=== PATIENT | male | born 1985 | race Caucasian/White ===

== ENCOUNTER 2017-06-09 08:38 | Outpatient (RCR) | payer BC, OTHER ==
[~2017-06-09 08:38] MED LIST: AGM875T PO; CLIN-62 PO; CPR500T PO; FLUT16SP22; METH4TAB PO
== END 2017-09-07 | disposition home or self-care (01) ==
LOC: CARD 08:38
PROVIDERS: ATTEND Nurse Practitioner Family
DX: R07.89 Other chest pain (principal); R06.02 Shortness of breath; R42 Dizziness and giddiness
CPT/HCPCS: 93225; 93226

== ENCOUNTER 2017-06-11 07:51 | Emergency (ER) | payer BC ==
[~2017-06-11] VITALS: Ht 195.6 cm; Wt 93.0 kg
[2017-06-11 08:28] LABS: BASOPHILS % (AUTO) 0 % (0-10); EOSINOPHILS # (AUTO) 0.1 10^3/uL (0.0-0.3); EOSINOPHILS % (AUTO) 2 % (0-10); HEMATOCRIT 43 % (40-54); HEMOGLOBIN 14.9 G/DL (13.3-17.7); LYMPHOCYTES # (AUTO) 1.8 X 10^3 (1.0-4.0); LYMPHOCYTES % (AUTO) 36 % (12-44); MEAN CORPUSCULAR HEMOGLOBIN 30 PG (25-34); MEAN CORPUSCULAR HGB CONC 35 G/DL (32-36); MEAN CORPUSCULAR VOLUME 85 FL (80-99); MEAN PLATELET VOLUME 9.7 FL (7.4-10.4); MONOCYTES # (AUTO) 0.5 X 10^3 (0.0-1.0); MONOCYTES % (AUTO) 9 % (0-12); NEUTROPHILS # (AUTO) 2.7 X 10^3 (1.8-7.8); NEUTROPHILS % (AUTO) 53 % (42-75); PLATELET COUNT 219 10^3/uL (130-400); RED BLOOD COUNT 5.02 10^6/uL (4.35-5.85); RED CELL DISTRIBUTION WIDTH 12.8 % (10.0-14.5); WHITE BLOOD COUNT 5.1 10^3/uL (4.3-11.0)
[2017-06-11] MEDS ORDERED: ASPIRIN 81 MG CHEW (CHILDREN'S ASA) PO ONE (08:30)
[2017-06-11 08:32] LABS: INR 1.1 (0.8-1.4); PROTHROMBIN TIME PATIENT 14.5 SEC (12.2-14.7)
[2017-06-11 08:41] LABS: ALANINE AMINOTRANSFERASE 15 U/L (0-55); ALBUMIN 4.7 GM/DL (3.2-4.5); ALKALINE PHOSPHATASE 57 U/L (40-136); BILIRUBIN,TOTAL 0.9 MG/DL (0.1-1.0); BUN/CREATININE RATIO 15; CALCIUM 9.5 MG/DL (8.5-10.1); CARBON DIOXIDE 24 MMOL/L (21-32); CHLORIDE 107 MMOL/L (98-107); CREATININE SERUM 0.87 MG/DL (0.60-1.30); GFR ESTIMATED > 60; GLUCOSE 111 MG/DL (70-105); MAGNESIUM 2.1 MG/DL (1.8-2.4); SODIUM 140 MMOL/L (135-145); TOTAL PROTEIN 7.3 GM/DL (6.4-8.2)
[2017-06-11 08:49] LABS: MYOGLOBIN SERUM 24.4 NG/ML (10.0-92.0)
--- NOTE | 2017-06-11 08:50 | Diagnostic Imaging Report ---
INDICATION: Chest pain and lightheadedness. TIME OF EXAM: 09:02 a.m. No prior studies are available for comparison. The heart size is normal. The pulmonary vascularity is unremarkable. The lungs are clear. No infiltrate, effusion or pneumothorax is detected. IMPRESSION: No acute cardiopulmonary process is detected. Dictated by: Dictated on workstation # [id number]
--- NOTE | 2017-06-11 09:07 | ED Chest Pain ---
General Chief Complaint: Chest Pain Stated Complaint: LIGHT HEADED,DIZZY,CHEST DISCOMFORT Nursing Triage Note: PT CO OF L SIDED CHEST PAIN RATES 4/10 STATES WAS 7/10 EARLIER THIS AM, PT STATES HAS BEEN GOING ON FOR 8-10DAYS, HAS BEEN SEEN AT [facility] FOR PAIN, PT STATES WAS WEARING HOLTER MONITOR FOR APPROX 48HOURS PRIOR TO VISIT, HAS A PENDING APPT W MACHINIST/MACHINE BUILDER. STATES HAS OCC SOA W PAIN, SOMETIMES RADIATED TO NECK ON BOTH SIDES Nursing Sepsis Screen: No Definite Risk Source: patient, family Exam Limitations: no limitations History of Present Illness Date Seen by Provider: June 11, 2017 Time Seen by Provider: 07:58 Initial Comments This 31 year old young man presents to the ER with complaints of chest pain intermittently and worsening over about 10 days. His been more constant over the last 24 hours. He has been wearing a Holter monitor which she is to turn in today. He rates the pain as 4 or 5/10. Earlier this morning at 02:00 he rated the pain as 8 or 9. He has associated lightheadedness, dizziness, and radiation of pain into the neck. He had been seen at [facility] who arranged the Holter monitor. He denies any nausea, vomiting, or fever. He does have some shortness of breath. He has minimal cough. He has not noted any changes with exertion, position, or inspiration. He works in the [employer] industry and denies increase in pain at work. He has no personal history of cardiopulmonary problems. He does have a family member with SVT. Allergies and Home Medications Allergies Coded Allergies: No Known Drug Allergies (Unverified , 04/11/10) Home Medications No Active Prescriptions or Reported Meds Patient Home Medication List Home Medication List Reviewed: Yes Review of Systems Constitutional: no symptoms reported EENTM: No Symptoms Reported Respiratory: See HPI Cardiovascular: See HPI Gastrointestinal: No Symptoms Reported Genitourinary: No Symptoms Reported Musculoskeletal: no symptoms reported Skin: no symptoms reported Psychiatric/Neurological: No Symptoms Reported Endocrine: No Symptoms Reported Hematologic/Lymphatic: No Symptoms Reported Past Fsnxzud-Rswbdq-Ohindv Hx Patient Social History Alcohol Use: Occasionally Uses Recreational Drug Use: No Smoking Status: Current Everyday Smoker Type Used: Cigarettes Recent Foreign Travel: No Contact w/Someone Who Travel: No Recent Infectious Disease Expo: No Recent Hopitalizations: No Past Medical History Surgeries: Yes ( BABY, LEFT ARM) Respiratory: No Cardiac: No Neurological: No Reproductive Disorders: No Gastrointestinal: No Musculoskeletal: No Endocrine: No HEENT: No Cancer: No Psychosocial: No Blood Disorders: No Family Medical History Heart Disease (SVT) Physical Exam Vital Signs Vital Signs - First Documented 06/11/17 07:55 Temp 97.8 Pulse 73 Resp 14 B/P (MAP) 151/73 (99) Pulse Ox 97 Capillary Refill : Less Than 3 Seconds General Appearance: No Apparent Distress, WD/WN HEENT: PERRL/EOMI, Normal ENT Inspection Neck: Normal Inspection, Non Tender Respiratory: Lungs Clear, Normal Breath Sounds, No Accessory Muscle Use, No Respiratory Distress Cardiovascular: Regular Rate, Rhythm, No Edema, No Murmur, Normal Peripheral Pulses Gastrointestinal: Normal Bowel Sounds, Non Tender, Soft Extremity: Normal Inspection, Non Tender, No Calf Tenderness, No Pedal Edema, Other (Negative Qing) Neurologic/Psychiatric: Alert, Oriented x3, No Motor/Sensory Deficits, Normal Mood/Affect, plumber's helper II-XII Norm as Tested Skin: Normal Color, Warm/Dry Progress/Results/Core Measures Lab Results Laboratory Tests Test 06/11/17 08:05 Range/Units White Blood Count 5.1 4.3-11.0 10^3/uL Red Blood Count 5.02 4.35-5.85 10^6/uL Hemoglobin 14.9 13.3-17.7 G/DL Hematocrit 43 40-54 % Mean Corpuscular Volume 85 80-99 FL Mean Corpuscular Hemoglobin 30 25-34 PG Mean Corpuscular Hemoglobin Concent 35 32-36 G/DL Red Cell Distribution Width 12.8 10.0-14.5 % Platelet Count 219 130-400 10^3/uL Mean Platelet Volume 9.7 7.4-10.4 FL Neutrophils (%) (Auto) 53 42-75 % Lymphocytes (%) (Auto) 36 12-44 % Monocytes (%) (Auto) 9 0-12 % Eosinophils (%) (Auto) 2 0-10 % Basophils (%) (Auto) 0 0-10 % Neutrophils # (Auto) 2.7 1.8-7.8 X 10^3 Lymphocytes # (Auto) 1.8 1.0-4.0 X 10^3 Monocytes # (Auto) 0.5 0.0-1.0 X 10^3 Eosinophils # (Auto) 0.1 0.0-0.3 10^3/uL Basophils # (Auto) 0.0 0.0-0.1 10^3/uL Prothrombin Time 14.5 12.2-14.7 SEC INR Comment 1.1 0.8-1.4 Activated Partial Thromboplast Time 34 24-35 SEC D-Dimer 0.27 0.00-0.49 UG/ML Sodium Level 140 135-145 MMOL/L Potassium Level 4.0 3.6-5.0 MMOL/L Chloride Level 107 98-107 MMOL/L Carbon Dioxide Level 24 21-32 MMOL/L Anion Gap 9 5-14 MMOL/L Blood Urea Nitrogen 13 7-18 MG/DL Creatinine 0.87 0.60-1.30 MG/DL Estimat Glomerular Filtration Rate > 60 BUN/Creatinine Ratio 15 Glucose Level 111 H 70-105 MG/DL Calcium Level 9.5 8.5-10.1 MG/DL Magnesium Level 2.1 1.8-2.4 MG/DL Total Bilirubin 0.9 0.1-1.0 MG/DL Aspartate Amino Transf (AST/SGOT) 16 5-34 U/L Alanine Aminotransferase (ALT/SGPT) 15 0-55 U/L Alkaline Phosphatase 57 40-136 U/L Myoglobin 24.4 10.0-92.0 NG/ML Troponin I < 0.30 <0.30 NG/ML Total Protein 7.3 6.4-8.2 GM/DL Albumin 4.7 H 3.2-4.5 GM/DL My Orders Orders - BENTON CHAVEZ MD Cbc With Automated Diff (06/11/17 08:20) Magnesium (06/11/17 08:20) Ekg Tracing (06/11/17 08:20) Cardiac Profile 1 (06/11/17 08:20) Comprehensive Metabolic Panel (06/11/17 08:20) Myoglobin Serum (06/11/17 08:20) Protime With Inr (06/11/17 08:20) Partial Thromboplastin Time (06/11/17 08:20) O2 (06/11/17 08:20) Monitor-Rhythm Ecg Trace Only (06/11/17 08:20) Aspirin Chewable Tablet (Baby Aspirin Ch (06/11/17 08:30) Saline Lock/Iv-Start (06/11/17 08:20) Fibrin Degradation Products (06/11/17 08:20) Chest Pa/Lat (2 View) (06/11/17 08:20) Ketorolac Injection (Toradol Injection) (06/11/17 09:30) Iv Push Db2 Systems Programmer Ed (06/11/17 ) Medications Given in ED Vital Signs/I&O 06/11/17 06/11/17 07:55 10:37 Temp 97.8 Pulse 73 48 Resp 14 18 B/P (MAP) 151/73 (99) 127/75 Pulse Ox 97 99 Blood Pressure Mean: 99 Progress Note : Progress Note Patient was given aspirin as part of chest pain protocol. Workup was unremarkable. His turned in his Holter monitor and Dr. Paul was notified of the situation. Toradol was given for some lingering pain. This did seem to improve his pain and he was nearly pain-free at the time of dismissal. Initial ECG Impression Date: June 11, 2017 Initial ECG Impression Time: 07:58 Initial ECG Rate: 71 Initial ECG Rhythm: Normal Sinus Initial ECG Intervals: Normal Initial ECG Impression: Normal Comment Normal sinus rhythm with no ST elevation or depression. No abnormal intervals or axis deviation. Diagonstic Imaging: Xray Plain Films/CT/US/NM/MRI: chest Comments Chest x-ray viewed by me and report reviewed. See report below: NAME: RACHEL HENRY [facility] REC#: [id number] PT STATUS: REG ER : 1985 PHYSICIAN: BENTON CHAVEZ MD ADMIT DATE: 06/11/17/ER Draft Date of Exam:06/11/17 CHEST PA/LAT (2 VIEW) INDICATION: Chest pain and lightheadedness. TIME OF EXAM: 09:02 a.m. No prior studies are available for comparison. The heart size is normal. The pulmonary vascularity is unremarkable. The lungs are clear. No infiltrate, effusion or pneumothorax is detected. IMPRESSION: No acute cardiopulmonary process is detected. Dictated on workstation # [id number] Dict: 06/11/17 0847 Trans: 06/11/17 0850 [facility] [id number] Interpreted by: BURT OLIVEIRA MD Departure Impression Primary Impression: Atypical chest pain Additional Impression: Lightheadedness Disposition: 01 HOME, SELF-CARE Condition: Improved Departure-Patient Inst. Decision time for Depature: 10:20 Referrals: NO,LOCAL PHYSICIAN (PCP/Family) Primary Care Physician Patient Instructions: Chest Pain (DC) Add. Discharge Instructions: Drink plenty of clear liquids. You may take ibuprofen up to 600 mg every 6 hours as needed for pain. Take with food or milk to avoid stomach irritation. You may add Tylenol ( acetaminophen) up to 1000 mg every 6 hours as needed for additional pain relief. Return to care if symptoms worsen. Follow-up with your primary care provider soon as possible. Keep your appointment with the feed miller. All discharge instructions reviewed with patient and/or family. Voiced understanding. Scripts No Active Prescriptions or Reported Meds Copy Copies To 1: DINH PAUL MD Copies To 2: BINTA GROVES JOSHUA T MD June 11, 2017 09:07
[2017-06-11] MEDS ORDERED: KETOROLAC 30 MG/ML VIAL IVP ONE (09:30)
[2017-06-11 10:37] VITALS: BP 127/75
== END 2017-06-11 10:40 | disposition home or self-care (01) ==
LOC: EDUNIT# 07:51 → ER 07:53
DX: R07.89 Other chest pain (principal); R42 Dizziness and giddiness; F17.210 Nicotine dependence, cigarettes, uncomplicated
CPT/HCPCS: 36415; 71046; 80053; 83735; 83874; 84484; 85025; 85379; 85610; 85730; 93005; 93041; 96374

== ENCOUNTER → 2017-06-23 | Outpatient (CLI) | payer BC | LOC: CARD 10:22 | PROVIDERS: ATTEND Internal Medicine Cardiovascular Disease | DX: R07.89 Other chest pain (principal); R42 Dizziness and giddiness; R06.02 Shortness of breath | CPT/HCPCS: 93017 ==

== ENCOUNTER → 2017-07-11 | Outpatient (CLI) | payer BC | LOC: CARD 12:48 | PROVIDERS: ATTEND Internal Medicine Cardiovascular Disease | DX: R07.89 Other chest pain (principal); R42 Dizziness and giddiness; R06.09 Other forms of dyspnea | CPT/HCPCS: 93306 ==